=== PATIENT | male | born 1945 | race Caucasian/White ===

== ENCOUNTER 2017-03-01 12:00 | Emergency (ER) | payer OTHER ==
[~2017-03-01] VITALS: Ht 185.4 cm; Wt 104.3 kg
[2017-03-01 13:38] LABS: AMPHETAMINE QUAL UR NONE DETECTED (NEG <=1000)
[2017-03-01 14:12] VITALS: BP 145/82
== END 2017-03-01 14:12 | disposition home or self-care (01) ==
LOC: ED 12:00
DX: S63.502A Unspecified sprain of left wrist, initial encounter (principal); S63.501A Unspecified sprain of right wrist, initial encounter; S83.92XA Sprain of unspecified site of left knee, initial encounter; S83.91XA Sprain of unspecified site of right knee, initial encounter; I10 Essential (primary) hypertension; E11.9 Type 2 diabetes mellitus without complications; Z79.4 Long term (current) use of insulin; W17.89XA Other fall from one level to another, initial encounter; Y93.89 Activity, other specified; Y99.8 Other external cause status; Y92.89 Other specified places as the place of occurrence of the external cause

== ENCOUNTER 2017-03-13 14:02 | Inpatient (IN) | payer OTHER ==
[~2017-03-13] VITALS: Ht 188 cm; Wt 99.0 kg
[2017-03-13 17:48] LABS: BASOPHIL % 0.4 % (0-2); PLATELET COUNT 216 x10^3mcL (130-400); RED CELL DISTRIBUTION WIDTH 13.8 % (11.5-14.5)
[2017-03-13 17:59] LABS: ALBUMIN 3.4 g/dL (3.4-5.0); ALKALINE PHOSPHATASE 82 U/L (46-116); ALT/SGPT 22 U/L (16-63); AST/SGOT 21 U/L (15-37); BILIRUBIN TOTAL 1.12 mg/dL (0.20-1.00); CALCIUM 9.6 mg/dL (8.5-10.1); CARBON DIOXIDE 34.9 mmol/L (21-32); CHLORIDE SERUM 99 mmol/L (98-107); CREATININE SERUM 0.8 mg/dL (0.7-1.3); GFR1 > 60 mL/min; GLUCOSE SERUM 167 mg/dL (74-106); SODIUM SERUM 137 mmol/L (136-145); TOTAL PROTEIN, SERUM 7.6 g/dL (6.4-8.2)
[2017-03-13 18:07] LABS: POTASSIUM SERUM 2.7 mmol/L (3.5-5.1)
[2017-03-13] MEDS ORDERED: OXYCODONE HYDRO10 M1 PO (18:29)
[2017-03-13] MEDS ORDERED: AMBIEN CR12.5 MG PO (18:30)
[2017-03-13] MEDS ORDERED: TRULICITY0.75 MG/0. (18:30)
[2017-03-13 19:25] LABS: T3 TOTAL 1.31 ng/mL
[2017-03-13 19:34] LABS: CHOLESTEROL/HDL RATIO 4.1; MAGNESIUM 2.1 mg/dL (1.8-2.4); PHOSPHOROUS 2.3 mg/dL (2.5-4.9)
[2017-03-13 19:47] LABS: FREE T4 1.34 ng/dL (0.76-1.46); FREE THYROXINE INDEX 3.5 ug/dL (1.4-4.5); T4(THYROXINE) 11.3 ug/dL (4.7-13.3)
[2017-03-13 20:04] VITALS: BP 145/81
[2017-03-13 20:11] VITALS: Ht 188 cm; Wt 99.0 kg
[2017-03-14 01:31] LABS: CALCIUM 9.1 mg/dL (8.5-10.1); CARBON DIOXIDE 32.3 mmol/L (21-32); CHLORIDE SERUM 106 mmol/L (98-107); CREATININE SERUM 0.8 mg/dL (0.7-1.3); GFR1 > 60 mL/min; GLUCOSE SERUM 164 mg/dL (74-106); SODIUM SERUM 143 mmol/L (136-145)
[2017-03-14 01:34] LABS: POTASSIUM SERUM 2.7 mmol/L (3.5-5.1)
[2017-03-14 07:45] VITALS: BP 126/77
[2017-03-14 11:07] LABS: microscopic required? YES; urine erythrocyte TRACE (NEGATIVE)
[2017-03-14 13:48] VITALS: BP 128/78
[2017-03-14 17:21] VITALS: BP 135/85
[2017-03-14 20:44] VITALS: BP 133/83
[2017-03-15 06:02] VITALS: BP 125/76
[2017-03-15 06:37] LABS: PLATELET COUNT 152 x10^3mcL (130-400); RED CELL DISTRIBUTION WIDTH 13.9 % (11.5-14.5)
[2017-03-15 06:42] LABS: CALCIUM 8.5 mg/dL (8.5-10.1); CARBON DIOXIDE 30.9 mmol/L (21-32); CHLORIDE SERUM 107 mmol/L (98-107); CREATININE SERUM 0.7 mg/dL (0.7-1.3); GFR1 > 60 mL/min; GLUCOSE SERUM 90 mg/dL (74-106); MAGNESIUM 1.9 mg/dL (1.8-2.4); PHOSPHOROUS 4.2 mg/dL (2.5-4.9); SODIUM SERUM 144 mmol/L (136-145)
[2017-03-15 09:22] VITALS: BP 112/59
[2017-03-15 14:27] VITALS: BP 139/82
[2017-03-15 17:22] VITALS: BP 135/87
[2017-03-15 20:28] VITALS: BP 136/80
[2017-03-16 04:51] VITALS: BP 138/71
[2017-03-16 07:04] LABS: CALCIUM 8.5 mg/dL (8.5-10.1); CARBON DIOXIDE 29.3 mmol/L (21-32); CHLORIDE SERUM 106 mmol/L (98-107); CREATININE SERUM 0.7 mg/dL (0.7-1.3); GFR1 > 60 mL/min; GLUCOSE SERUM 113 mg/dL (74-106); POTASSIUM SERUM 3.5 mmol/L (3.5-5.1); SODIUM SERUM 142 mmol/L (136-145)
[2017-03-16 07:07] LABS: BASOPHIL % 0.7 % (0-2); PLATELET COUNT 152 x10^3mcL (130-400); RED CELL DISTRIBUTION WIDTH 13.6 % (11.5-14.5)
[2017-03-16 09:01] VITALS: BP 140/95
[2017-03-16] MEDS ORDERED: NEU300 PO (12:30)
[2017-03-16] MEDS ORDERED: APAP/HYDROCODON1 T13 PO (13:07)
[2017-03-16] MEDS ORDERED: BD LACTINEX1.4 MG PO (13:11)
[2017-03-16] MEDS ORDERED: CLINDAMYCIN HC300 MG PO (13:11)
[2017-03-16] MEDS ORDERED: BACTROBAN22 TOP (13:25)
[2017-03-16 13:37] VITALS: BP 108/80; BP 130/78
== END 2017-03-16 15:24 | disposition home or self-care (01) | DRG 638 ==
LOC: ED 14:02 → DU 18:14
PROVIDERS: Emergency Medicine; ADMIT Family Medicine
DX: E11.621 Type 2 diabetes mellitus with foot ulcer (principal); D68.69 Other thrombophilia; L03.032 Cellulitis of left toe; L97.529 Non-pressure chronic ulcer of other part of left foot with unspecified severity; E11.51 Type 2 diabetes mellitus with diabetic peripheral angiopathy without gangrene; E11.65 Type 2 diabetes mellitus with hyperglycemia; E87.6 Hypokalemia; M19.072 Primary osteoarthritis, left ankle and foot; K76.0 Fatty (change of) liver, not elsewhere classified; I10 Essential (primary) hypertension; E83.39 Other disorders of phosphorus metabolism; Z59.0 Homelessness; Z79.4 Long term (current) use of insulin; Z68.28 Body mass index [BMI] 28.0-28.9, adult; Z87.891 Personal history of nicotine dependence; Z22.322 Carrier or suspected carrier of Methicillin resistant Staphylococcus aureus
CPT/HCPCS: 82962; 83880; 84439; 87046; 87046-59; J1815; J2543; J3480; J3490; J7030; Q0092